=== PATIENT | female | born 1955 | race African-American/Black ===

== ENCOUNTER 2017-05-31 19:26 | Inpatient (IN) | payer MEDICARE, OTHER ==
[~2017-05-31] VITALS: Ht 170.2 cm; Wt 85.3 kg
--- NOTE | 2017-05-31 19:40 | NUR ---
62 yo female bb ambulance from . pt is alert x 3, c/ o feeling depressed. pt assisted to er bed, skin warm and dry, resp even and unlabored. patient denies any medical complaints at this time. Awaiting orders from provider, will continue to monitor
--- NOTE | 2017-05-31 19:50 | NUR ---
Patient ambulated to er restroom with steady gait, urine sample obtained and sent to lab
--- NOTE | 2017-05-31 19:56 | NUR ---
phlebotomy lab assistant at bed side for blood draw
[2017-05-31 19:59] LABS: BASOPHILS # (AUTO) 0.1 /CMM (0.0-0.2); BASOPHILS % (AUTO) 1.5 % (0.0-2.0); EOSINOPHILS # (AUTO) 0.6 /CMM (0.0-0.7); EOSINOPHILS % (AUTO) 8.2 % (0.0-6.0); HEMATOCRIT 40 % (33-45); LYMPHOCYTES # (AUTO) 3.8 /CMM (0.8-4.8); MEAN CORPUSCULAR HEMOGLOBIN 30 PG (26.0-33.0); MEAN CORPUSCULAR HGB CONC 33 g/dl (31.0-36.0); MEAN CORPUSCULAR VOLUME 89 fL (82-100); MONOCYTES # (AUTO) 0.4 /CMM (0.1-1.30); MONOCYTES % (AUTO) 5.2 % (2.0-12.0); NEUTROPHILS % (AUTO) 38.1 % (43.0-81.0); PLATELET COUNT (AUTO) 235 /CMM (150-450); RDW COEFFICIENT OF VARIATION 12.2 (11.5-15.0); RED BLOOD CELL COUNT(AUTO) 4.42 MIL/uL (4.0-5.2); WHITE BLOOD COUNT (AUTO) 7.9 K/uL (4.3-11.0)
[2017-05-31 20:05] LABS: APPEARANCE,URINE Clear (CLEAR); BILIRUBIN,URINE Negative (NEGATIVE); BLOOD, URINE Small Ery/uL (NEGATIVE); COLOR,URINE Yellow (YELLOW); KETONES,URINE Negative (NEGATIVE); LEUKOCYTE ESTERASE ,URINE Trace (NEGATIVE); NITRITE, URINE Negative (NEGATIVE); PH,URINE 5.5 (5.0-8.0); PROTEIN,URINE Negative (NEGATIVE); UGLUCOSE Negative (NEGATIVE); UROBILINOGEN,URINE 0.2 EU/dL (0.2)
[2017-05-31 20:09] LABS: CALCIUM, SERUM 8.9 mg/dL (8.5-10.1); CARBON DIOXIDE 29 mmol/L (21-32); CHLORIDE 107 mmol/L (98-107); CREATININE 1.5 mg/dL (0.6-1.3); GLUCOSE 101 mg/dL (74-106); POTASSIUM 4.3 mmol/L (3.5-5.1); SODIUM SERUM 141 mmol/L (136-145); UREA NITROGEN, BLOOD 39 mg/dL (7-18)
[2017-05-31 20:14] LABS: ALANINE AMINOTRANSFERASE 18 U/L (12-78); ALBUMIN 3.4 g/dL (3.4-5.0); ALKALINE PHOSPHATASE 97 U/L (46-116); ASPARTATE AMINOTRANSFERASE 18 U/L (15-37); BILIRUBIN,TOTAL 0.1 mg/dL (0.2-1.0); TOTAL PROTEIN, SERUM 7.2 g/dL (6.4-8.2)
[2017-05-31 20:15] LABS: ACETAMINOPHEN < 10 ug/ml (10-30); ALCOHOL, BLOOD < 3 mg/dL (0-0); SALICYLATE 1.7 mg/dL (2.8-20.0)
[2017-05-31 20:26] LABS: BACTERIA,URINE Few /HPF (None Seen); SQUAMOUS EPITHELIAL CELL,UR Few /HPF (None Seen)
--- NOTE | 2017-05-31 21:02 | NUR ---
patient resting in er bed, nad noted, will continue to monitor
[2017-05-31 21:07] LABS: EOSINOPHILS % (MANUAL) 9 % (0-4); LYMPHOCYTES % (MANUAL) 49 % (16-48); MONOCYTES % (MANUAL) 3 % (0-11.0); NEUTROPHILS % (MANUAL) 39 (42-76)
[2017-05-31] MEDS ORDERED: TRAZ-144 PO (21:31)
[2017-05-31] MEDS ORDERED: OLAN10TA3 PO (21:31)
[2017-05-31] MEDS ORDERED: ESCI5TAB PO (21:31)
[2017-05-31] MEDS ORDERED: ACET325T53 PO (21:31)
[2017-05-31] MEDS ORDERED: LORA1TAB82 PO (21:31)
--- NOTE | 2017-05-31 21:37 | NUR ---
patient transported to joan bed without incident
[2017-05-31] MEDS ORDERED: MAG HYDROX/AL HYDROX/SIMETH 30 ML UDC PO PRN (23:00)
[2017-05-31] MEDS ORDERED: MAGNESIUM HYDROXIDE 30 ML UDC PO PRN (23:00)
[2017-05-31] MEDS ORDERED: ZOLPIDEM TARTRATE 5 MG TABLET PO PRN (23:00)
[2017-05-31] MEDS ORDERED: LORAZEPAM 0.5 MG TABLET PO PRN (23:00)
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
[2017-06-01 07:17] LABS: BASOPHILS # (AUTO) 0.1 /CMM (0.0-0.2); BASOPHILS % (AUTO) 0.9 % (0.0-2.0); EOSINOPHILS # (AUTO) 0.5 /CMM (0.0-0.7); EOSINOPHILS % (AUTO) 8.7 % (0.0-6.0); HEMATOCRIT 43 % (33-45); HEMOGLOBIN 14.3 g/dL (11.5-14.8); LYMPHOCYTES # (AUTO) 2.8 /CMM (0.8-4.8); LYMPHOCYTES % (AUTO) 47.9 % (20.0-44.0); MEAN CORPUSCULAR HEMOGLOBIN 30 PG (26.0-33.0); MEAN CORPUSCULAR HGB CONC 33 g/dl (31.0-36.0); MEAN CORPUSCULAR VOLUME 90 fL (82-100); MONOCYTES # (AUTO) 0.4 /CMM (0.1-1.30); MONOCYTES % (AUTO) 6.2 % (2.0-12.0); NEUTROPHILS # (AUTO) 2.2 /CMM (1.8-8.9); NEUTROPHILS % (AUTO) 36.3 % (43.0-81.0); PLATELET COUNT (AUTO) 231 /CMM (150-450); RDW COEFFICIENT OF VARIATION 12.8 (11.5-15.0); RED BLOOD CELL COUNT(AUTO) 4.81 MIL/uL (4.0-5.2); WHITE BLOOD COUNT (AUTO) 5.9 K/uL (4.3-11.0)
[2017-06-01 07:19] LABS: ALBUMIN 3.3 g/dL (3.4-5.0); BILIRUBIN,TOTAL 0.2 mg/dL (0.2-1.0); CALCIUM, SERUM 8.7 mg/dL (8.5-10.1); POTASSIUM 4.4 mmol/L (3.5-5.1)
[2017-06-01] MEDS ORDERED: IBUP-1955 PO (08:02)
[2017-06-01 08:20] VITALS: BP 147/76
--- NOTE | 2017-06-01 10:46 | NUR ---
gps ranch manager: md visit seen by dr. quigley at this time and home meds has been held by .
[2017-06-01] MEDS: ESCITALOPRAM OXALATE (10 MG) 10 MG TABLET PO SCH (12:31)
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
[2017-06-01 16:00] VITALS: BP 126/78
[2017-06-01 20:00] VITALS: BP 136/61
[2017-06-01] MEDS: OLANZAPINE 5 MG/TAB.RAPDIS PO SCH (21:06)
[2017-06-01] MEDS: TRAZODONE 50 MG TABLET PO SCH (21:06)
[2017-06-01] MEDS: ACETAMINOPHEN 325 MG TABLET PO PRN (22:25)
[2017-06-02 08:00] VITALS: BP 130/63
[2017-06-02] MEDS: ESCITALOPRAM OXALATE (10 MG) 10 MG TABLET PO SCH (09:25)
[2017-06-02] MEDS: OLANZAPINE 5 MG/TAB.RAPDIS PO SCH ×2 (09:26→21:46)
[2017-06-02 16:13] VITALS: BP 141/69
[2017-06-02 20:00] VITALS: BP 147/84
[2017-06-02] MEDS: TRAZODONE 50 MG TABLET PO SCH (21:46)
[2017-06-03 08:15] VITALS: BP 108/59
[2017-06-03] MEDS: OLANZAPINE 5 MG/TAB.RAPDIS PO SCH ×2 (08:21→21:35)
[2017-06-03] MEDS: ESCITALOPRAM OXALATE (10 MG) 10 MG TABLET PO SCH (08:21)
[2017-06-03] MEDS: ACETAMINOPHEN 325 MG TABLET PO PRN (08:21)
[2017-06-03 16:00] VITALS: BP 120/53
[2017-06-03 20:00] VITALS: BP 105/65
[2017-06-03] MEDS: TRAZODONE 50 MG TABLET PO SCH (21:35)
--- NOTE | 2017-06-04 07:24 | NUR ---
RN GPS NOTES ALL NEEDS MET AND ANTICIPATED , DENIES SI/ HI DURING SHIFT , NO ACUTE DISTRESS NOTED , ENDORSE TO NEXT SHIFT FOR CONTINUITY OF CARE.
[2017-06-04 08:00] VITALS: BP 127/64
[2017-06-04] MEDS: OLANZAPINE 5 MG/TAB.RAPDIS PO SCH ×2 (08:45→21:32)
[2017-06-04] MEDS: ESCITALOPRAM OXALATE (10 MG) 10 MG TABLET PO SCH (08:45)
[2017-06-04 16:00] VITALS: BP 137/83
[2017-06-04] MEDS: ACETAMINOPHEN 325 MG TABLET PO PRN (20:22)
[2017-06-04 20:51] VITALS: BP 130/66
[2017-06-04] MEDS: TRAZODONE 50 MG TABLET PO SCH (21:32)
[2017-06-05 08:00] VITALS: BP 144/70
[2017-06-05] MEDS: OLANZAPINE 5 MG/TAB.RAPDIS PO SCH ×2 (08:06→21:00)
[2017-06-05] MEDS: ESCITALOPRAM OXALATE (10 MG) 10 MG TABLET PO SCH (08:06)
--- NOTE | 2017-06-05 10:48 | NUR ---
Per pj at [facility] at [address], [place] [address] / [phone], patient can return to the facility upon discharge.
[2017-06-05] MEDS: ACETAMINOPHEN 325 MG TABLET PO PRN (14:01)
[2017-06-05 16:03] VITALS: BP 124/53
[2017-06-05 20:30] VITALS: BP 110/55
[2017-06-05] MEDS: TRAZODONE 50 MG TABLET PO SCH (21:00)
[2017-06-06] MEDS: ESCITALOPRAM OXALATE (10 MG) 10 MG TABLET PO SCH (08:32)
[2017-06-06] MEDS: OLANZAPINE 5 MG/TAB.RAPDIS PO SCH ×2 (08:34→22:16)
[2017-06-06 09:07] VITALS: BP 108/61
[2017-06-06 17:01] VITALS: BP 162/72
--- NOTE | 2017-06-06 19:30 | NUR ---
GPS RN NOTE, RECEIVED PATIENT AWAKE AND IN BED, NO S/S OR COMPLAINTS OF PAIN AT THIS TIME. PATIENT IS DISPLAYING NO S/S OF APPARENT DISTRESS AT THIS TIME. PATIENT BREATHING IS UNLABORED WITH EQUAL RISE AND FALL OF THE CHEST. PATIENT HAS A ONE TO ONE SITTER FOR FALL. PATIENT IS ALERT AND ORIENTED X 3 ON ROOM AIR WITH A SPO2 OF 99%. PATIENT IS AMBULATORY, COMPLIANT MEDICATION, FIXATED ON FOOD, DISORGANIZED, AND NEEDS REORIENTATION. PATIENT DENIES SUICIDE IDEATIONS AND HOMICIDAL IDEATIONS AT THIS TIME. PATIENT EDUCATED ON THE USE OF THE CALL PURDY. PATIENT BED SIDE RAILS UP X2 FOR SAFETY, BED IS LOCKED AND LOW, AND I WILL CONTINUE TO MONITOR AND MAINTAIN SAFETY Q15MIN WITH THE HELP OF STAFF.
[2017-06-06 20:21] VITALS: BP 157/74
[2017-06-06] MEDS: TRAZODONE 50 MG TABLET PO SCH (22:16)
[2017-06-07] MEDS: ESCITALOPRAM OXALATE (10 MG) 10 MG TABLET PO SCH (08:10)
[2017-06-07] MEDS: OLANZAPINE 5 MG/TAB.RAPDIS PO SCH ×2 (08:10→21:03)
[2017-06-07 08:37] VITALS: BP 131/73
[2017-06-07 17:22] VITALS: BP 131/76
--- NOTE | 2017-06-07 19:30 | NUR ---
GPS RN NOTE, RECEIVED PATIENT AWAKE AND IN BED, NO S/S OR COMPLAINTS OF PAIN AT THIS TIME. PATIENT IS DISPLAYING NO S/S OF APPARENT DISTRESS AT THIS TIME. PATIENT BREATHING IS UNLABORED WITH EQUAL RISE AND FALL OF THE CHEST. PATIENT IS ALERT AND ORIENTED X 3 ON ROOM AIR WITH A SPO2 OF 99%. PATIENT IS AMBULATORY, COMPLIANT MEDICATION, FIXATED ON FOOD, DISORGANIZED, AND NEEDS REORIENTATION. PATIENT DENIES SUICIDE IDEATIONS AND HOMICIDAL IDEATIONS AT THIS TIME. PATIENT EDUCATED ON THE USE OF THE CALL PURDY. PATIENT BED SIDE RAILS UP X2 FOR SAFETY, BED IS LOCKED AND LOW, AND I WILL CONTINUE TO MONITOR AND MAINTAIN SAFETY Q15MIN WITH THE HELP OF STAFF.
[2017-06-07 20:00] VITALS: BP 114/61
[2017-06-07] MEDS: TRAZODONE 50 MG TABLET PO SCH (21:03)
[2017-06-08 08:00] VITALS: BP 131/77
[2017-06-08] MEDS: ESCITALOPRAM OXALATE (10 MG) 10 MG TABLET PO SCH (08:16)
[2017-06-08] MEDS: OLANZAPINE 5 MG/TAB.RAPDIS PO SCH (08:19)
--- NOTE | 2017-06-08 09:10 | NUR ---
DR. BOYD GAVE AN ORDER TO D/C HOLD AND D/C TO [facility]. PT. WITHOUT DISTRESS, DENIES SUICIDAL AND HOMICIDAL AND TO FOLLOW UP WITH PSYCH AND MEDICAL DOCTORS.
--- NOTE | 2017-06-08 11:55 | NUR ---
PT. SIGNED THE DISCHARGE PAPERS, BELONGINGS READY AND REPORT GIVEN TO TAYA BOLDEN RN OVER THE FACILITY.
--- NOTE | 2017-06-08 13:01 | NUR ---
OMER STANTON MADE AWARE OF THE DISCHARGE AND SAID OK FOR DISCHARGE AND TO CONTINUE SAME MEDS.
--- NOTE | 2017-06-08 13:50 | NUR ---
PT. LEFT THE UNIT VIA AMBULANCE WITH BELONGINGS AND TRANSPORTED VIA A GURNEY. LEFT WITHOUT DISTRESS AND ON STABLE CONDITION. V/S TAKEN: BP 140/73, ND 77, TEMP. 98.5, RR 18 AND OXYGEN SAT. 100%.
--- NOTE | 2017-06-08 15:22 | NUR ---
Discharge Note: Patient was discharged to [facility] [address] [place] [address] ([phone]). Via med response. Patient was agreeable with the discharge plan. Patient's mood and affect were calm upon discharge. Patient denied suicidal and homicidal ideations. Patient will follow up with psychiatrist Dr. Navarro at the the facility. Facilitated info to IDT team who are in agreement with discharge arrangement. The multidisciplinary exitcare form was done, printed, signed, and given to the patient.
== END 2017-06-08 13:50 | DRG 885 ==
LOC: ER 19:33 → GPS 21:40
PROVIDERS: ADMIT Psychiatry & Neurology Psychiatry; ATTEND Nurse Practitioner Acute Care
DX: F25.1 Schizoaffective disorder, depressive type (principal); N17.0 Acute kidney failure with tubular necrosis; E78.5 Hyperlipidemia, unspecified; F29 Unspecified psychosis not due to a substance or known physiological condition; M19.90 Unspecified osteoarthritis, unspecified site; Z79.899 Other long term (current) drug therapy; Z87.440 Personal history of urinary (tract) infections
CPT/HCPCS: 36415; 73660-TC; 80048-TC; 80053-TC; 80061-TC; 80076-TC; 80305; 81000-TC; 85025-TC; 87081-TC; A4606; G0480; Z7610